=== PATIENT | female | born 1980 | race Two or more races ===

== ENCOUNTER → 2024-01-04 | Day surgery (SDC) | payer BC | END | disposition home or self-care (01) | LOC: FRADUS-SUR 13:08 | PROVIDERS: ATTEND Obstetrics & Gynecology | PROC: 0HBU3ZX Excision of Left Breast, Percutaneous Approach, Diagnostic (ICD-10-PCS; principal; 2024-01-04) | DX: N60.32 Fibrosclerosis of left breast (principal); N63.22 Unspecified lump in the left breast, upper inner quadrant | CPT/HCPCS: 19083; 77065-TC; 87899; 88305-TC; A4648 ==